=== PATIENT | male | born 2000 | race Two or more races ===

== ENCOUNTER 2021-11-08 01:12 | Emergency (ER) | payer SELFPAY ==
[~2021-11-08] VITALS: Ht 154.9 cm; Wt 59.0 kg
[2021-11-08] MEDS ORDERED: KETOROLAC 30MG/ML VIAL IV STA (01:46)
[2021-11-08] MEDS ORDERED: MORPHINE SULFATE 4 MG/ML CPJ (NOT FOR IM USE) IV STA (01:46)
[2021-11-08] MEDS ORDERED: ONDANSETRON HCL 4MG/2ML INJ IV STA (01:46)
[2021-11-08] MEDS ORDERED: SODIUM CHLORIDE 0.9% 1,000 ML IV ONE (02:00)
[2021-11-08] MEDS ORDERED: TETANUS, DIPHTHERIA, PERTUSSIS VAC/PF 0.5ML (>10YR OLD) IM ONE (02:00)
[2021-11-08 02:48] LABS: BASOPHILS % 0.5 % (0.0-2.0); EOSINOPHILS % 1.8 % (0.0-5.0); HEMATOCRIT. 42.1 % (42.0-52.0); HEMOGLOBIN. 14.2 g/dL (14.0-18.0); LYMPHOCYTES % 16.3 % (20.0-50.0); MEAN CORPUSCULAR HEMOGLOBIN 28.8 pg (28.0-32.0); MEAN CORPUSCULAR VOLUME 85.3 fL (80.0-94.0); MEAN PLATELET VOLUME 8.2 fl (7.4-10.4); MONOCYTES % 5.7 % (2.0-8.0); NEUTROPHILS % 75.7 % (40.0-76.0); PLATELET 303 x1000/uL (130-400); RED BLOOD CELL COUNT 4.94 mill/uL (4.7-6.1); RED CELL DISTRIBUTION WIDTH 13.2 % (11.6-14.6)
[2021-11-08 02:55] LABS: CHLORIDE 106 mEq/L (98-107)
[2021-11-08 03:03] LABS: CREATINE KINASE 161 IU/L (39-308)
[2021-11-08] MEDS ORDERED: BACITRACIN ZINC OINT UDPKT TOP ONE (03:15)
[2021-11-08] MEDS ORDERED: KETOROLAC 30MG/ML VIAL IV NR (03:30)
[2021-11-08] MEDS ORDERED: HYDR-4001 MT (03:37)
[2021-11-08] MEDS ORDERED: IBUP-2029 MT (03:37)
[2021-11-08 03:48] VITALS: BP 129/66
== END 2021-11-08 04:16 | disposition home or self-care (01) ==
LOC: ER 01:12
DX: S60.512A Abrasion of left hand, initial encounter (principal); S80.812A Abrasion, left lower leg, initial encounter; S90.812A Abrasion, left foot, initial encounter; M25.561 Pain in right knee; M79.641 Pain in right hand; W22.8XXA Striking against or struck by other objects, initial encounter; Y93.89 Activity, other specified; Y92.89 Other specified places as the place of occurrence of the external cause; Y99.0 Civilian activity done for income or pay
CPT/HCPCS: 36415; 73130; 73562; 73590; 73630; 80048; 82550; 83690; 85025; 90471; 90715; 96361; 96374; 96375; 99291; J1885; J2270; J2405; J7030; Z7610